=== PATIENT | male | born 1965 | race Two or more races ===

== ENCOUNTER → 2020-11-26 | Outpatient (CLI) | payer OTHER ==
--- NOTE | 2020-11-26 10:33 | RAD ---
EXAM: Chest CT without intravenous contrast. HISTORY: Shortness of breath. Covid 19. TECHNIQUE: Computed tomographic images of the chest were obtained without contrast. Multiplanar refor matting was performed. *One or more of the following individualized dose reduction techniques were utilized for this examina tion: 1. Automated exposure control. 2. Adjustment of the mA and/or kV according to patient size. 3. Use of iterative reconstruction technique. COMPARISON: None. FINDINGS: The heart is upper normal in size. The aorta is normal in caliber. There are prominent medi astinal and hilar lymph nodes. For reference purposes, there is a right paratracheal lymph node measu ring 2.2 cm and right precarinal lymph node measuring 1.6 cm. There is no pneumothorax or pleural eff usion. There is severe emphysema with superimposed chronic interstitial changes. There is nonspecific upper lobe predominant groundglass opacity. There is no consolidation. There is no suspicious pulmonary nod ule. There is mild hepatomegaly. There is a splenule adjacent to an otherwise unremarkable spleen. There i s no acute finding involving the upper abdomen or osseous structures. IMPRESSION: 1. Emphysema with superimposed chronic interstitial changes and nonspecific upper lobe groundglass op acity, the latter of which may be infectious or inflammatory in etiology. There is no consolidated in filtrate or suspicious pulmonary nodule. 2. Prominent mediastinal and hilar lymph nodes. These are nonspecific and may be physiologic or react gissel in etiology. Electronically signed by: Myranda Cevallos MD (11/26/2020 10:30 AM) [id number]
== END ==
LOC: CT 09:46
PROVIDERS: ATTEND Nurse Practitioner Family
DX: U07.1 COVID-19 (principal); J43.9 Emphysema, unspecified; J84.89 Other specified interstitial pulmonary diseases
CPT/HCPCS: 71250